=== PATIENT | female | born 1990 | race Caucasian/White ===

== ENCOUNTER 2022-07-02 23:35 | Emergency (ER) | payer BC ==
[2022-07-03 00:05] VITALS: BP 110/72; PULSE 108; RESP 18; TEMP 100.2
[2022-07-03] MEDS ORDERED: AMOXIC-POT CLAV 875-125MG 1 EACH TAB PO STA (01:23)
[2022-07-03] MEDS ORDERED: IBUPROFEN 400 MG TAB PO STA (01:23)
[2022-07-03] MEDS ORDERED: ACETAMINOPHEN TAB 325 MG TAB PO STA (01:23)
[2022-07-03] MEDS ORDERED: DIPH,PERTUS(ACELL)TETVAC-LF 0.5 ML VIAL IM ONE (01:24)
--- NOTE | 2022-07-03 01:27 | ED ---
Skin/Abscess/FB HPI - General Chief complaint: Skin/Abscess/Foreign Body Stated complaint: Abscess in mouth, Fever Time Seen by Provider: 07/03/22 01:19 Source: patient, RN notes reviewed, old records reviewed Mode of arrival: ambulatory Limitations: no limitations - History of Present Illness Initial comments: This is a nontoxic-appearing 32-year-old female who presents to the emergency room with complaints of an abscess on the roof of her mouth behind her front teeth. She states just noticed it today. She denies any nausea vomiting diarrhea. No sore throat or difficulty swallowing. MD complaint: abscess/boil (upper palate behind teeth #8, 9) -: days(s) (1) Tetanus Up to Date: no Severity scale (1-10): 7 Quality: constant Consistency: constant Improves with: none Worsens with: palpation Associated symptoms: fever Treatments Prior to Arrival: none - Related Data Previous Rx's Medication Instructions Recorded Amoxic-Pot Clav 875-125Mg 1 tab PO Q12HR 10 Days #20 tab 07/03/22 [Augmentin 875-125] Allergies Allergy/AdvReac Type Severity Reaction Status Date / Time No Known Allergies Allergy Verified 07/03/22 00:05 Review of Systems ROS Statement: Those systems with pertinent positive or pertinent negative responses have been documented in the HPI. ROS Other: All systems not noted in ROS Statement are negative. Past Medical History Past Medical History: No Reported History History of Any Multi-Drug Resistant Organisms: None Reported Past Surgical History: No Surgical Hx Reported Past Psychological History: Depression Smoking Status: Never smoker Past Alcohol Use History: None Reported Past Drug Use History: None Reported General Exam Limitations: no limitations General appearance: alert, in no apparent distress Head exam: Present: atraumatic, normocephalic Eye exam: Present: normal appearance. Absent: scleral icterus, conjunctival injection, periorbital swelling ENT exam: Present: mucous membranes moist Expanded Mouth exam: Present: tongue normal, tongue elevation. Absent: drooling, trismus, muffled voice Teeth exam: Present: dental caries, other (Abscess palate behind tooth 8 and 9) Throat exam: negative: tonsillar erythema, tonsillomegaly, tonsillar exudate, R peritonsillar mass, L peritonsillar mass Neck exam: Present: normal inspection, full ROM. Absent: tenderness, me ningismus, lymphadenopathy Respiratory exam: Present: normal lung sounds bilaterally. Absent: respiratory distress, accessory muscle use Cardiovascular Exam: Present: tachycardia GI/Abdominal exam: Present: soft. Absent: distended, tenderness, rigid Neurological exam: Present: alert, oriented X3 Psychiatric exam: Present: normal affect, normal mood Skin exam: Present: warm, dry, normal color. Absent: cyanosis, diaphoretic, petechiae, pallor Course Vital Signs 07/03/22 00:02 Temperature 100.2 F H Pulse Rate 108 H Respiratory 18 Rate Blood Pressure 110/72 O2 Sat by Pulse 97 Oximetry Procedures - Incision & Drainage Consent Obtained: verbal consent Site: oral Sterile Field Used?: No Needle Aspiration Performed?: Yes I&D Drainage Obtained: Pus Culture Obtained?: No Patient Tolerated Procedure: well Medical Decision Making - Medical Decision Making Needle aspiration incision and drainage of abscess on the roof of her mouth, purulent drainage obtained. No evidence of dental abscess. Patient does have multiple dental caries. She was given a dose of Tylenol, Motrin and Augmentin in the emergency room. Directed to use warm saltwater gargles throughout the day swish and spit. Take antibiotics as prescribed. Follow-up with her primary care doctor/dentist this week. Return to the emergency room with any new or concerning symptoms. Case discussed with Dr. Montalvo Disposition Clinical Impression: Oral abscess Disposition: HOME SELF-CARE Condition: Good Instructions (If sedation given, give patient instructions): Abscess (ED) Additional Instructions: Saltwater gargles, swish and spit. Take antibiotics as prescribed. Tylenol and/or Motrin as needed for pain or discomfort. Follow-up with primary care doctor and dentist next week Return to the Emergency room with any new or concerning symptoms. Prescriptions: Amoxic-Pot Clav 875-125Mg [Augmentin 875-125] 1 tab PO Q12HR 10 Days #20 tab Is patient prescribed a controlled substance at d/c from ED?: No Referrals: None,Stated [Primary Care Provider] - 1-2 days Time of Disposition: 01:37
== END 2022-07-03 01:42 | disposition home or self-care (01) ==
LOC: EC 23:35
DX: K12.2 Cellulitis and abscess of mouth (principal); Z23 Encounter for immunization; F32.A Depression, unspecified
CPT/HCPCS: 10060; 90471; 90715; 99283